=== PATIENT | male | born 1930 | race Caucasian/White ===

== ENCOUNTER 2019-02-04 12:32 | Emergency (ER) | payer OTHER ==
[~2019-02-04] VITALS: Ht 170.2 cm; Wt 76.2 kg
[2019-02-04] MEDS ORDERED: ASPIR 8181 MG (12:55)
[2019-02-04] MEDS ORDERED: ATENOLOL25 MG (12:55)
== END 2019-02-04 18:02 | disposition home or self-care (01) ==
LOC: ER 12:32
DX: J32.1 Chronic frontal sinusitis (principal); B34.9 Viral infection, unspecified